=== PATIENT | female | born 1990 | race Caucasian/White ===

== ENCOUNTER → 2017-12-14 14:00 | Outpatient (CLI) | payer OTHER, SELFPAY | PROVIDERS: Family Provider Family Medicine; PCP Family Medicine | DX: Z23 Encounter for immunization (principal) | CPT/HCPCS: 90471; 90686 ==

== ENCOUNTER → 2018-08-17 08:39 | Outpatient (CLI) | payer OTHER, SELFPAY ==
[2018-08-17 09:09] LABS: Hematocrit 43.8 % (36-46); Hemoglobin 14.7 g/dL (12.0-16.0); Mean Corpuscular HGB Conc 33.6 % (30-36); Mean Corpuscular Hemoglobin 28.9 PG (26-34); Platelet Count 219 X10^3/uL (150-400); Red Blood Cell Count 5.09 X10^6/uL (4.0-5.2); Red Cell Distribution Width 13.4 % (11.6-14.8); White Blood Cell Count 5.5 X10^3/uL (4.5-11.0)
[2018-08-17 09:54] LABS: Alanine Aminotransferase 20 IU/L (9-52); Albumin 4.7 g/dL (3.5-5.0); Albumin Globulin Ratio 1.6 (1.0-2.8); Alkaline Phosphatase 40 U/L (38-126); Aspartate Aminotransferase 38 IU/L (14-36); BUN Creatinine Ratio 18.3 (6-22); Bilirubin Total 0.9 mg/dL (0.2-1.3); Blood Urea Nitrogen 11 mg/dL (7-17); Calcium 9.6 mg/dL (8.4-10.2); Carbon Dioxide 30 mmol/L (22-32); Chloride 100 mmol/L (98-107); Estimated Glomerular Filt Rate > 60.0 mL/min (>60); Glucose 93 mg/dL (70-100); HEMOLYSIS 17 (0-50); Potassium 3.8 mmol/L (3.4-5.1); Sodium 138 mmol/L (137-145); Total Protein 7.7 g/dL (6.3-8.2)
== END ==
PROVIDERS: PCP Nurse Practitioner Family; Visit Provider Nurse Practitioner Family
DX: Z00.00 Encounter for general adult medical examination without abnormal findings (principal)
CPT/HCPCS: 36415; 80053; 85027

== ENCOUNTER → 2018-09-02 07:41 | Outpatient (CLI) | payer OTHER, SELFPAY | PROVIDERS: PCP Nurse Practitioner Family; Visit Provider Nurse Practitioner Family | DX: Z02.0 Encounter for examination for admission to educational institution (principal) | CPT/HCPCS: 36415; 86787 ==

== ENCOUNTER → 2019-01-19 08:37 | Outpatient (CLI) | payer OTHER, SELFPAY | PROVIDERS: PCP Nurse Practitioner Family | DX: Z23 Encounter for immunization (principal) | CPT/HCPCS: 90471; 90686 ==

== ENCOUNTER → 2019-09-18 17:19 | Outpatient (CLI) | payer OTHER, SELFPAY ==
[2019-09-18 19:00] LABS: BUN Creatinine Ratio 24.6 (6-22); Blood Urea Nitrogen 14 mg/dL (7-17); Calcium 9.8 mg/dL (8.4-10.2); Carbon Dioxide 25 mmol/L (22-32); Chloride 103 mmol/L (98-107); Estimated Glomerular Filt Rate > 60.0 mL/min (>60); Glucose 76 mg/dL (70-100); HEMOLYSIS < 15 (0-50); Potassium 3.9 mmol/L (3.4-5.1); Sodium 137 mmol/L (137-145)
[2019-09-20 15:08] LABS: QuantiFERON Mitogen Value 5.55 IU/mL (.); QuantiFERON Nil Value 0.17 IU/mL (.); QuantiFERON TB Gold Plus Negative (Negative); QuantiFERON TB1 Ag Value 0.22 IU/mL (.); QuantiFERON TB2 Ag Value 0.17 IU/mL (.)
== END ==
PROVIDERS: PCP Nurse Practitioner Family; Referring Provider Nurse Practitioner Family; Visit Provider Nurse Practitioner Family
DX: Z00.00 Encounter for general adult medical examination without abnormal findings (principal); Z11.1 Encounter for screening for respiratory tuberculosis
CPT/HCPCS: 36415; 80048; 86480

== ENCOUNTER → 2019-12-19 | Outpatient (CLI) | payer OTHER, SELFPAY | PROVIDERS: PCP Nurse Practitioner Family; Referring Provider Internal Medicine; Visit Provider Internal Medicine | DX: Z23 Encounter for immunization (principal) | CPT/HCPCS: 90471; 90686 ==

== ENCOUNTER → 2020-03-22 15:48 | Outpatient (CLI) | payer OTHER, SELFPAY ==
[2020-03-22] MEDS: COVID-19 VACC(MODERNA-1)/PF 100 MCG/0.5 ML VIAL IM (16:06)
== END ==
PROVIDERS: Visit Provider Internal Medicine
DX: Z23 Encounter for immunization (principal)
CPT/HCPCS: 0011A; 91301

== ENCOUNTER → 2020-04-18 15:45 | Outpatient (CLI) | payer OTHER, SELFPAY ==
[2020-04-18] MEDS: COVID-19 VACC #2, MRNA(MOD) 100 MCG/0.5 ML VIAL IM (15:50)
== END ==
PROVIDERS: Visit Provider Internal Medicine
DX: Z23 Encounter for immunization (principal)
CPT/HCPCS: 0012A; 91301

== ENCOUNTER → 2020-07-04 10:57 | Outpatient (CLI) | payer OTHER, SELFPAY ==
[2020-07-04 11:27] LABS: Hematocrit 39.8 % (36-46); Hemoglobin 13.4 g/dL (12.0-16.0); Mean Corpuscular HGB Conc 33.5 % (30-36); Mean Corpuscular Hemoglobin 28.9 PG (26-34); Mean Corpuscular Volume 86.1 fL (80-100); Platelet Count 195 X10^3/uL (150-400); Red Blood Cell Count 4.63 X10^6/uL (4.0-5.2); Red Cell Distribution Width 13.8 % (11.6-14.8); White Blood Cell Count 7.6 X10^3/uL (4.5-11.0)
[2020-07-04 12:16] LABS: Alanine Aminotransferase 16 IU/L (<35); Albumin 4.5 g/dL (3.5-5.0); Albumin Globulin Ratio 1.9 (1.0-2.8); Alkaline Phosphatase 48 U/L (38-126); Aspartate Aminotransferase 26 IU/L (14-36); BUN Creatinine Ratio 18.2 (6-22); Bilirubin Total 0.7 mg/dL (0.2-1.3); Blood Urea Nitrogen 10 mg/dL (7-17); Calcium 9.5 mg/dL (8.4-10.2); Carbon Dioxide 28 mmol/L (22-32); Chloride 102 mmol/L (98-107); Cholesterol 125 mg/dL (140-199); Estimated Glomerular Filt Rate > 60.0 mL/min (>60); Globulin 2.4 g/dL (1.7-4.1); Glucose 87 mg/dL (70-100); HDL Cholesterol 47 mg/dL (40-60); HEMOLYSIS < 15 (0-50); LDL Cholesterol Calculated 68 mg/dL (<100); Potassium 3.9 mmol/L (3.4-5.1); Sodium 137 mmol/L (137-145); Total Protein 6.9 g/dL (6.3-8.2); Triglycerides 51 mg/dL (35-150)
== END ==
PROVIDERS: PCP Nurse Practitioner Family; Referring Provider Nurse Practitioner Family; Visit Provider Nurse Practitioner Family
DX: Z00.00 Encounter for general adult medical examination without abnormal findings (principal); Z13.6 Encounter for screening for cardiovascular disorders
CPT/HCPCS: 36415; 80053; 80061; 85027

== ENCOUNTER → 2021-01-02 | Outpatient (CLI) | payer SELFPAY | PROVIDERS: PCP Nurse Practitioner Family; Referring Provider Internal Medicine; Visit Provider Internal Medicine | DX: Z23 Encounter for immunization (principal) | CPT/HCPCS: 90471; 90686 ==

== ENCOUNTER → 2022-01-30 08:06 | Outpatient (CLI) | payer BC, SELFPAY | PROVIDERS: PCP Nurse Practitioner Family; Referring Provider Internal Medicine; Visit Provider Internal Medicine | DX: Z23 Encounter for immunization (principal) | CPT/HCPCS: 90471; 90686 ==

== ENCOUNTER → 2022-06-02 16:20 | Outpatient (CLI) | payer BC, SELFPAY ==
[2022-06-02 19:09] LABS: Urine N gonorrhoeae NOT DETECTED
[2022-06-02 19:12] LABS: Urine Chlamydia NOT DETECTED
[2022-06-04 16:29] LABS: HIV 1 & 2 Ab/Ag 4th Gen Combo NEGATIVE (NEGATIVE); Hep C Virus Ab w/Reflex Quant NEGATIVE s/c (NEGATIVE); Hepatitis B Surface Antigen NEGATIVE s/c (NEGATIVE)
[2022-06-05 12:21] LABS: HSV 2 IGG AB < 0.91 index (0.00-0.90); RPR Screen Non Reactive (Non Reactive)
== END ==
PROVIDERS: PCP Nurse Practitioner Family; Referring Provider Nurse Practitioner Family; Visit Provider Nurse Practitioner Family
DX: N89.8 Other specified noninflammatory disorders of vagina (principal); Z20.2 Contact with and (suspected) exposure to infections with a predominantly sexual mode of transmission
CPT/HCPCS: 36415; 86592; 86695; 86696; 86803; 87210; 87340; 87389; 87491; 87591

== ENCOUNTER → 2023-01-27 02:20 | Outpatient (CLI) | payer BC, SELFPAY | PROVIDERS: PCP Nurse Practitioner Family; Referring Provider Family Medicine; Visit Provider Family Medicine | DX: Z23 Encounter for immunization (principal) | CPT/HCPCS: 90471; 90686 ==

== ENCOUNTER → 2023-05-26 10:46 | Outpatient (CLI) | payer OTHER, SELFPAY ==
--- NOTE | 2023-05-26 10:47 | DI.RAD.S_ITS ---
PROCEDURE: XR LUMBAR SPINE 2-3V INDICATIONS: back pain TECHNIQUE: 3 views of the lumbar spine were acquired. COMPARISON: None. FINDINGS: Bones: 5 [id number] vertebrae are present. There is normal bony alignment. No vertebral body compression fractures. No suspicious bony lesions. Mild to moderate disc height loss at L4-5 and L5-S1. Soft tissues: Overlying bowel gas pattern is normal. No suspicious soft tissue calcifications. IUD projects over the pelvis. IMPRESSION: Mild to moderate lower lumbar degenerative disc disease. Dictated by: Braxton Patel M.D. on 05/26/2023 at 11:59 Approved by: Braxton Patel M.D. on 05/26/2023 at 12:00
== END ==
PROVIDERS: PCP Nurse Practitioner Family; Referring Provider Nurse Practitioner Family; Visit Provider Nurse Practitioner Family
DX: M51.16 Intervertebral disc disorders with radiculopathy, lumbar region (principal)
CPT/HCPCS: 72100

== ENCOUNTER 2023-06-24 11:07 | Emergency (ER) | payer OTHER, SELFPAY ==
[2023-06-24 11:17] VITALS: BP 136/93; PULSE 91; RESP 12; TEMP 36.2; O2SAT 100; BMI 24.9
--- NOTE | 2023-06-24 13:08 | ED_ITS ---
HPI - Extremity Problem General Chief complaint: Extremity Problem,Nontraumatic Stated complaint: rt leg numbness tingling weakness Time Seen by Provider: 06/24/23 13:08 Source: patient Mode of arrival: Ambulatory History of Present Illness HPI Narrative: 32-year-old female with history of low back pain approximately a month and a half ago from an injury patient states that was more in the left side, this Wednesday she started having more pain in the right buttock with numbness and tingling radiating down her leg towards her toes and noticed little bit of difficulty lifting her right toes. She denies any other weakness in her leg. N o saddle anesthesia. No loss of bowel or bladder control. She states pain before was more localized to the left side. She does not recall any new injuries recently. She states she does work out regularly. She did have a course of steroids which was helpful, she has been taking naproxen last night took a muscle relaxer which was not very helpful last night. Patient denies fevers or chills. No midline back tenderness. She denies any chest pain or shortness of breath, no other GI or urinary symptoms. She states no daily prescription medications. No prior back surgeries or interventions. No tobacco, occasional alcohol, no recreational drugs. She does have a primary care provider to follow with. Related Data Home Medications Medication Instructions Recorded Confirmed levonorgestrel 21 mcg/24 hours (8 52 mg INTRAU ##0 04/07/05/21/23 yrs) 52 mg intrauterine device (Mirena) doxylamine succinate 25 mg tablet 25 mg PO BEDTIME PRN 07/04/20 05/21/23 Previous Rx's Medication Instructions Recorded acyclovir 800 mg tablet See Rx Instructions .Route 02/13/22 .COMPLEX #90 tabs cyclobenzaprine 10 mg tablet 5 - 10 mg (0.5 - 1 x 10 mg) PO TID 05/18/23 #30 tabs naproxen 500 mg tablet 500 mg PO BID #60 tabs 05/18/23 gabapentin 300 mg capsule 300 mg PO TID #30 caps 06/24/23 meloxicam 7.5 mg tablet 7.5 mg PO BID PRN pain #14 tabs 06/24/23 prednisone 10 mg tablets in a dose See Rx Instructions PO .COMPLEX 06/24/23 pack #18 ea Allergies Allergy/AdvReac Type Severity Reaction Status Date / Time No Known Drug Allergies Allergy Verified 05/21/23 16:01 Review of Systems Review of Systems ROS Unobtainable: All systems reviewed & are unremarkable except as noted in HPI and below Patient History Medical History Lumbar radiculopathy IUD (intrauterine device) in place Encounter for wellness examination in adult Insomnia Anxiety Family History Father Obese Diabetes mellitus Hypertension Mother Hypertension Social History Smoking Status: Never smoker second hand exposure: No alcohol intake: current (3 Beers on the weekends) substance use type: does not use Smoking Status: Never smoker alcohol intake frequency: 0-2 drinks per day Substance Use Type: does not use Exam Narrative Exam Narrative: GENERAL: Alert and oriented x three, female in mild distress. HEENT: Head normocephalic, atraumatic, EOMI, pupils reactive, face symmetric, moist mucous membranes NECK: Supple, full range of motion CARDIOVASCULAR: Regular rate and rhythm without murmurs, rubs or gallops. RESPIRATORY: Breath sounds equal bilaterally, no wheezes rales or rhonchi. ABDOMEN: Soft, nontender. Normoactive bowel sounds all 4 quadrants. No guarding or rebound, rigidity, no mass : No CVA tenderness BACK: No cervical, thoracic or lumbar vertebral point tenderness. Patient has normal range of motion. Patient's gait is normal. Rectal exam is deferred. No saddle anesthesia. Muscle strength is 5/5 in lower extremities, very mild difference in right dorsiflexion compared to left but is able to overcome my resistance. DTRs are 2/4 lower extremities. Dorsalis pedis and tibialis pulses are 2+ and lower extremities. Sensation is intact in the lower extremities. EXTREMITIES: Normal range of motion, no clubbing or edema. Neurovascularly intact NEUROLOGICAL: Cranial nerves II through XII grossly intact. Moving all extremities SKIN: Warm, dry, no petechiae, no rashes or lesions. Initial Vital Signs Initial Vital Signs: Vital Signs Temperature 97.2 F L 06/24/23 11:17 Pulse Rate 91 H 06/24/23 11:17 Respiratory Rate 12 06/24/23 11:17 Blood Pressure 136/93 H 06/24/23 11:17 Pulse Oximetry 100 06/24/23 11:17 Oxygen Delivery Method Room Air 06/24/23 11:17 Course Vital Signs Vital signs: Vital Signs - 8 hr 06/24/23 11:17 06/24/23 13:40 Temperature 97.2 F L Pulse Rate 91 H 71 Respiratory Rate 12 14 Blood Pressure 136/93 H 123/81 Pulse Oximetry 100 98 Oxygen Delivery Method Room Air Room Air MDM - Extremity (Nontraumatic) MDM Narrative Medical decision making narrative: 32-year-old female with a history of low back injury and pain more in the left proximally a month and a half ago with new right buttock pain numbness and tingling but no midline pain. Patient's exam overall reassuring she has a very mild weakness with dorsiflexion of the toes but is able to overcome on examination, otherwise no red flag symptoms. Patient has been ambulating in the room. She defers anything for pain here. Patient has not had any trauma or changes that would warrant MR L-spine or CT imaging at this point. Discussed need for follow-up particularly if symptoms are not improving. Short course of steroids, gabapentin can continue naproxen for pain. Discussed follow up with spinal or PMR if symptoms are persistent but mild. Discussed red flag symptoms and reasons to return emergently. Discharge Plan Departure Patient Disposition: Home Clinical Impression: Lumbar back pain with radiculopathy affecting right lower extremity Instructions: DI for Lumbar Radiculopathy Activity Restrictions/Additional Instructions: Follow up with primary care your symptoms are persisting. Also included referral to orthopedic surgery/spinal surgeon. Please call to set up follow-up. Take steroids until completed. You can take Tylenol up to a 1000 mg every 6 hours and/or ibuprofen up to 600 mg every 6 hours. Can also take meloxicam 1 tablet every 12 hours as needed for pain. Do not take Aleve, naproxen or ibuprofen or other NSAIDs with this medica tion. Take gabapentin 1 tablet every 8 hours. Prescription sent to [place] in [place]. Please return for rapidly worsening symptoms, new or increasing weakness, loss of sensation, inability to lift or move your leg, loss of bowel or bladder control or other new or concerning changes. Prescriptions: New prednisone 10 mg tablets,dose pack See Rx Instructions .ROUTE .COMPLEX Qty: 18 0RF Rx Instructions: Take 40 mg once daily x3 days, then 30 mg once daily, then 20 mg once daily, then 10 mg once meloxicam 7.5 mg tablet 7.5 mg PO BID PRN (Reason: pain) Qty: 14 0RF gabapentin 300 mg capsule 300 mg PO TID Qty: 30 0RF No Action levonorgestrel [Mirena] 1 EACH intrauterine device 52 mg INTRAU Qty: 0 acyclovir 800 mg tablet See Rx Instructions .ROUTE .COMPLEX Qty: 90 2RF Dose Instruction: TAKE 1 TABLET BY MOUTH 5 TIMES A DAY NEEDED FOR OUTBREAK Rx Instructions: TAKE 1 TABLET BY MOUTH 5 TIMES A DAY NEEDED FOR OUTBREAK cyclobenzaprine 10 mg tablet 5 - 10 mg PO TID Qty: 30 2RF naproxen 500 mg tablet 500 mg PO BID Qty: 60 0RF doxylamine succinate 25 mg tablet 25 mg PO BEDTIME PRN Referrals: Ayesha Kelly, [employer] [Primary Care Provider] - Stand Alone Forms: Patient Portal/API
[2023-06-24 13:40] VITALS: BP 123/81; PULSE 71; RESP 14; O2SAT 98
== END 2023-06-24 13:42 | disposition home or self-care (01) ==
PROVIDERS: Emergency Provider Emergency Medicine; PCP Nurse Practitioner Family
DX: M54.16 Radiculopathy, lumbar region (principal)
CPT/HCPCS: 99281

== ENCOUNTER 2023-07-08 15:15 | Outpatient (RCR) | payer OTHER, SELFPAY ==
--- NOTE | 2023-06-17 16:00 | PT.OIE ---
Current Diagnoses Radiculopathy, lumbar region (06/17/23) Other muscle spasm (06/17/23) Past Medical History Anxiety Encounter for wellness examination in adult Insomnia IUD (intrauterine device) in place Visit Care Team Role [facility] Provider Advanced Property Coordinator Specialty: Family Practice Address: [address] [place] [address], [id number] Phone: Fax: Email: [email or web address] Rachel Garcia PA-C Attending Provider Advanced Property Coordinator Referring Provider Specialty: Medical Wound Care Address: [address] [place] [address], [id number] Email: [email or web address] Physical Therapy Initial Evaluation PT-OP-A Visit Information Start: 06/17/23 17:39 Freq: Status: Active Protocol: Document 06/17/23 15:15 DCW (Rec: 06/17/23 17:53 DCW [id number]) Out-Patient Physical Therapy Visit Information Visit Information Visit Type Initial Evaluation Visit Start Time 15:15 Visit Stop Time 16:00 Visit Number 1 Number of WAREHOUSE ASSEMBLY WORKER Visits 0 Evaluation Information Evaluation Date 06/17/23 PT-OP-B Current Condition Start: 06/17/23 17:39 Freq: Status: Active Protocol: Document 06/17/23 15:15 DCW (Rec: 06/18/23 13:30 DCW [id number]) Current Condition History of Current Condition Onset Date Long-standing history Current Complaints Back and left hip pain History of Current Condition Pt is a 32 year old female presenting to skilled therapy complaining of a recent flare- up of an old injury. Pt reports that she initially injured her back multiple years ago, she believes it began after playing softball, was seen at the time by a chiropractor, but afterward couldn't walk, and took an extended time for everything to largely get back to normal. Recently, she was feeling pretty stiff through her back on a Wednesday at work, played softball on Wednesday, and was in fairly severe pain Wednesday. Pt reports she was experiencing shooting pain across her low back, had to spend quite a while lying flat to calm things down, pain eventually faded and she was able to get back to running and the gym, but is limiting what she does due to lingering pain and stiffness. Pt does note that at this time, it feels more muscular, specifically tightness in the hip flexors and the back of her left hip. Treatment Goals Patient/Caregiver Goals Fully return to participation in gym activities PT-OP-C Subjective Start: 06/17/23 17:39 Freq: Status: Active Protocol: Document 06/17/23 15:15 DCW (Rec: 06/17/23 17:53 DCW [id number]) OP-PT Subjective Patient Comments Patient Comments It's been bothering me for a few months now, but it's actually an old injury. Patient Questionnaires Oswestry Low Back Index Oswestry Score 9/50 = 18% Oswestry Impairment 1 to 19% Impaired (Score 1-19) OP-PT Pain Assessment Pain Assessment Grid Paper Pain Assessment Grid Completed Yes Location Lower Back Variations/Patterns 3-09/21 PT-OP-F Manual Assessment Start: 06/17/23 17:39 Freq: Status: Active Protocol: Document 06/17/23 15:15 DCW (Rec: 06/18/23 13:30 DCW [id number]) Manual Assessments Soft Tissue Assessment Soft Tissue Mobility Assessment Moderate tone along left T/L erector spinae, left hip flexors, L>R ITB, L>R Piriformis Joint Mobility Assessment Joint Mobility Assessment Mild pain with P->A mobs at L3 -4 PT-OP-G Mobility & Gait Start: 06/17/23 17:39 Freq: Status: Active Protocol: Document 06/17/23 15:15 DCW (Rec: 06/18/23 13:30 DCW [id number]) OP Gait Assessment Comments Gait Comments Mild eversion/supination of feet bilaterally during gait, wear pattern along outside of shoe PT-OP-J Posture/Palpation/Skin Start: 06/17/23 17:39 Freq: Status: Active Protocol: Document 06/17/23 15:15 DCW (Rec: 06/18/23 13:30 DCW [id number]) Posture Evaluation Position Standing Ankle/Foot Posture (L) Pronated,(R) Pronated Foot Arch (L) Low Arch,(R) Low Arch PT-OP-L Special Tests Start: 06/17/23 17:39 Freq: Status: Active Protocol: Document 06/17/23 15:15 DCW (Rec: 06/18/23 13:30 DCW [id number]) Special Tests Lumbar Spine Special Tests Vertical Spine Loading Test Results Negative Miguel Ángel Test Results Bilaterally positive with J sign Straight Leg Raise Test Results Bilateral hamstring tightness Standing Flexion Test Results Complaint of lumbar tightness Slump Test Results Negative Prone Press Up Test Results Increased discomfort Passive Neck Flexion Test Results Negative Compression Test Results Negative A-P Shearing Test Results Negative PT-OP-Q Treatments Start: 06/17/23 17:39 Freq: Status: Active Protocol: Document 06/17/23 15:15 DCW (Rec: 06/17/23 17:53 DCW [id number]) Therapeutic Exercises Supine Exercises ITB Supine Exercise Name ITB stretch Hamstring Supine Exercise Name Hamstring Stretch Sitting Exercises Piriformis Sitting Exercise Name Seated figure-4 Side right PT-OP-T Assessment and Plan Start: 06/17/23 17:39 Freq: Status: Active Protocol: Document 06/17/23 15:15 DCW (Rec: 06/17/23 17:53 [facility] [id number]) Physical Therapy Assessment Rehab Potential Rehabilitation Potential Good Evaluation Complexity Number of Personal Factors/Comorbidities 1-2 Number of Body Systems Impaired 1-2 Clinical Presentation at Evaluation Stable Impairments Impairments Functional Activities, Functional Mobility,Gait,Pain, ROM,Soft Tissue Mobility,Tone Goals Two Impairment Pt has been limiting workouts due on ongoing history of back pain Fdc Goal (LTG) Pt to fully return to pre- injury workout with no instances of pain or limitations due to back tightness LTG Duration 08/17/23 One Impairment Pt does not have an appropriate home exercise program Short Term Goal (STG) Pt to be independent and compliant with an appropriate HEP STG Duration 07/17/23 Assessment Summary Assessment Pt presents with general musculoskeletal tightness and increased tone. Unable to replicate any back pain in clinic today, but pt does demonstrate moderate tone L>R along thoracolumbar erector spinae, hip flexors, hamstrings, QL, and ITB. Lumbar ROM is limited due to feelings of tightness. Wear pattern on pt's shoes does suggest pt ambulates with increased eversion/supination, however when standing without shoes, pt demonstrates mild pronation. Recommend follow-up gait assessment with newer pain of shoes, as well as observation of running and assessment of running shoes, pt agrees to bring with her next visit. Pt overall doing well with stretching at home, but admits she is not as compliant with frequency or duration as she could be. Will likely benefit from skilled therapy focusing on improving flexibility and soft tissue tone, potential gait training, and assess for orthotic possibilities. Physical Therapy Plan Frequency and Duration Frequency of Treatment 2x/Week Plan of Care Start Date 06/17/23 Plan of Care End Date 08/17/23 Therapeutic Interventions Therapeutic Interventions Gait Training,Home Exercise Program,Joint Mobilizations, Manual Therapy,Neuromuscular Re-education,Patient/Caregiver Education,Self-Care/Home Management,Soft Tissue Mobilization,Therapeutic Activities,Therapeutic Exercises Next Visit Focus/Plan Next Note Type Treatment Note Next Visit Plan Running assessment, shoe assessment, STM, stretching
--- NOTE | 2023-06-17 16:00 | PT.OPPOC ---
Physical, Occupational & Speech Therapy At [facility] Current Diagnoses Radiculopathy, lumbar region (06/17/23) Other muscle spasm (06/17/23) Visit Care Team Role Provider Type ZEB Mendoza Primary Care Provider Advanced Gyroscopic Instrument Tester Specialty: Family Practice Address: [address] [place] [address], [id number] Phone: Fax: Email: [email or web address] Rachel Garcia PA-C Attending Provider Advanced Gyroscopic Instrument Tester Referring Provider Specialty: Medical Wound Care Address: [address] [place] [address], [id number] Email: [email or web address] Plan Of Care PT-OP-T Assessment and Plan Start: 06/17/23 17:39 Freq: Status: Active Protocol: Document 06/17/23 15:15 DCW (Rec: 06/17/23 17:53 DCW [id number]) Physical Therapy Assessment Rehab Potential Rehabilitation Potential Good Evaluation Complexity Number of Personal Factors/Comorbidities 1-2 Number of Body Systems Impaired 1-2 Clinical Presentation at Evaluation Stable Impairments Impairments Functional Activities, Functional Mobility,Gait,Pain, ROM,Soft Tissue Mobility,Tone Goals Two Impairment Pt has been limiting workouts due on ongoing history of back pain Custodial Goal (LTG) Pt to fully return to pre- injury workout with no instances of pain or limitations due to back tightness LTG Duration 08/17/23 One Impairment Pt does not have an appropriate home exercise program Short Term Goal (STG) Pt to be independent and compliant with an appropriate HEP STG Duration 07/17/23 Assessment Summary Assessment Pt presents with general musculoskeletal tightness and increased tone. Unable to replicate any back pain in clinic today, but pt does demonstrate moderate tone L>R along thoracolumbar erector spinae, hip flexors, hamstrings, QL, and ITB. Lumbar ROM is limited due to feelings of tightness. Wear pattern on pt's shoes does suggest pt ambulates with increased eversion/supination, however when standing without shoes, pt demonstrates mild pronation. Recommend follow-up gait assessment with newer pain of shoes, as well as observation of running and assessment of running shoes, pt agrees to bring with her next visit. Pt overall doing well with stretching at home, but admits she is not as compliant with frequency or duration as she could be. Will likely benefit from skilled therapy focusing on improving flexibility and soft tissue tone, potential gait training, and assess for orthotic possibilities. Physical Therapy Plan Frequency and Duration Frequency of Treatment 2x/Week Plan of Care Start Date 06/17/23 Plan of Care End Date 08/17/23 Therapeutic Interventions Therapeutic Interventions Gait Training,Home Exercise Program,Joint Mobilizations, Manual Therapy,Neuromuscular Re-education,Patient/Caregiver Education,Self-Care/Home Management,Soft Tissue Mobilization,Therapeutic Activities,Therapeutic Exercises Next Visit Focus/Plan Next Note Type Treatment Note Next Visit Plan Running assessment, shoe assessment, STM, stretching Plan of Care Dates Plan of Care Start Date 06/17/23 Plan of Care End Date 08/17/23 Electronically Signed by: Fuad Crook, PT 06/18/23 [id number] If you are in agreement with this Plan of Care, please return a signed and dated copy. I have reviewed this Plan of Care and certify that the skilled therapy services above are required to meet the patient?s needs. Physician Signature Date Printed Name and Credentials Clinical Instructor Signature Printed Name and Credentials
--- NOTE | 2023-06-21 17:40 | PT.OTN ---
Current Diagnoses Radiculopathy, lumbar region (06/21/23) Other muscle spasm (06/21/23) Physical Therapy Treatment Note PT-OP-A Visit Information Start: 06/17/23 17:39 Freq: Status: Active Protocol: Document 06/21/23 16:00 DCW (Rec: 06/21/23 17:40 DCW [id number]) Out-Patient Physical Therapy Visit Information Visit Information Visit Type Treatment Note Visit Start Time 16:00 Visit Stop Time 16:45 Visit Number 2 Number of BUCKLE SEWER Visits 0 Evaluation Information Evaluation Date 06/17/23 PT-OP-B Current Condition Start: 06/17/23 17:39 Freq: Status: Active Protocol: Document 06/17/23 15:15 DCW (Rec: 06/18/23 13:30 DCW [id number]) Current Condition History of Current Condition Onset Date Long-standing history Current Complaints Back and left hip pain History of Current Condition Pt is a 32 year old female presenting to skilled therapy complaining of a recent flare- up of an old injury. Pt reports that she initially injured her back multiple years ago, she believes it began after playing softball, was seen at the time by a chiropractor, but afterward couldn't walk, and took an extended time for everything to largely get back to normal. Recently, she was feeling pretty stiff through her back on a Wednesday at work, played softball on Wednesday, and was in fairly severe pain Wednesday. Pt reports she was experiencing shooting pain across her low back, had to spend quite a while lying flat to calm things down, pain eventually faded and she was able to get back to running and the gym, but is limiting what she does due to lingering pain and stiffness. Pt does note that at this time, it feels more muscular, specifically tightness in the hip flexors and the back of her left hip. Treatment Goals Patient/Caregiver Goals Fully return to participation in gym activities PT-OP-C Subjective Start: 06/17/23 17:39 Freq: Status: Active Protocol: Document 06/21/23 16:00 DCW (Rec: 06/21/23 17:38 DCW [id number]) OP-PT Subjective Patient Comments Patient Comments Very sore after a workout and softball practice this weekend PT-OP-F Manual Assessment Start: 06/17/23 17:39 Freq: Status: Active Protocol: Document 06/17/23 15:15 DCW (Rec: 06/18/23 13:30 DCW [id number]) Manual Assessments Soft Tissue Assessment Soft Tissue Mobility Assessment Moderate tone along left T/L erector spinae, left hip flexors, L>R ITB, L>R Piriformis Joint Mobility Assessment Joint Mobility Assessment Mild pain with P->A mobs at L3 -4 PT-OP-G Mobility & Gait Start: 06/17/23 17:39 Freq: Status: Active Protocol: Document 06/17/23 15:15 DCW (Rec: 06/18/23 13:30 DCW [id number]) OP Gait Assessment Comments Gait Comments Mild eversion/supination of feet bilaterally during gait, wear pattern along outside of shoe PT-OP-J Posture/Palpation/Skin Start: 06/17/23 17:39 Freq: Status: Active Protocol: Document 06/17/23 15:15 DCW (Rec: 06/18/23 13:30 DCW [id number]) Posture Evaluation Position Standing Ankle/Foot Posture (L) Pronated,(R) Pronated Foot Arch (L) Low Arch,(R) Low Arch PT-OP-L Special Tests Start: 06/17/23 17:39 Freq: Status: Active Protocol: Document 06/17/23 15:15 DCW (Rec: 06/18/23 13:30 DCW [id number]) Special Tests Lumbar Spine Special Tests Vertical Spine Loading Test Results Negative Miguel Ángel Test Results Bilaterally positive with J sign Straight Leg Raise Test Results Bilateral hamstring tightness Standing Flexion Test Results Complaint of lumbar tightness Slump Test Results Negative Prone Press Up Test Results Increased discomfort Passive Neck Flexion Test Results Negative Compression Test Results Negative A-P Shearing Test Results Negative PT-OP-Q Treatments Start: 06/17/23 17:39 Freq: Status: Active Protocol: Document 06/21/23 16:00 DCW (Rec: 06/21/23 17:38 DCW [id number]) Gym Equipment Therapeutic Ball LTR Exercise Details LTR Ball Size/Color Red - 55 cm Therapeutic Exercises Sitting Exercises Ankle Flexion Sitting Exercise Name 4-way ankle flexion Side bilateral Resistance Lv 4 Standing Exercises Heel Raises Standing Exercise Name SL Heel raises Side bilateral Manual Therapy Treatment Soft Tissue Mobilization Piriformis Body Location L Piriformis Mobilization Type Strumming,Sustained Pressure, Trigger Point Release Intensity/Depth Deep Body Position Sidelying Hip Flexors Body Location L Hip Flexors Mobilization Type Strumming,Sustained Pressure Intensity/Depth Moderate Body Position Hooklying Lumbar Body Location L Lumbar paraspinals Mobilization Type Strumming,Sustained Pressure, Trigger Point Release Intensity/Depth Moderate Body Position Sidelying Manual Traction LE Traction Details Short-axis /c strap PT-OP-T Assessment and Plan Start: 06/17/23 17:39 Freq: Status: Active Protocol: Document 06/21/23 16:00 DCW (Rec: 06/21/23 17:38 DCW [id number]) Physical Therapy Assessment Impairments Impairments Functional Activities, Functional Mobility,Gait,Pain, ROM,Soft Tissue Mobility,Tone Goals Two Impairment Pt has been limiting workouts due on ongoing history of back pain Dance Professor Goal (LTG) Pt to fully return to pre- injury workout with no instances of pain or limitations due to back tightness LTG Duration 08/17/23 One Impairment Pt does not have an appropriate home exercise program Short Term Goal (STG) Pt to be independent and compliant with an appropriate HEP STG Duration 07/17/23 Assessment Summary Assessment Looked at running shoes and running technique today, no concerns, however when pt switched from jogging to walking, immediately repositioned feet into a more pronated position. Pt also struggled more with SL heel raises, especially on L side, where she performed small knee flexion->extension to use momentum into up position. Recommended pt add ankle strengthening. Soft tissue tone increased vs last week following active weekend, L paraspinals and piriformis much more tender today. Physical Therapy Plan Frequency and Duration Frequency of Treatment 2x/Week Plan of Care Start Date 06/17/23 Plan of Care End Date 08/17/23 Therapeutic Interventions Therapeutic Interventions Gait Training,Home Exercise Program,Joint Mobilizations, Manual Therapy,Neuromuscular Re-education,Patient/Caregiver Education,Self-Care/Home Management,Soft Tissue Mobilization,Therapeutic Activities,Therapeutic Exercises Next Visit Focus/Plan Next Note Type Treatment Note Next Visit Plan STM, stretching, strengthening
--- NOTE | 2023-06-23 17:04 | PT.OTN ---
Current Diagnoses Radiculopathy, lumbar region (06/23/23) Other muscle spasm (06/23/23) Physical Therapy Treatment Note PT-OP-A Visit Information Start: 06/17/23 17:39 Freq: Status: Active Protocol: Document 06/23/23 16:02 DCW (Rec: 06/23/23 17:04 DCW [id number]) Out-Patient Physical Therapy Visit Information Visit Information Visit Type Treatment Note Visit Start Time 16:02 Visit Stop Time 16:45 Visit Number 3 Number of SAND WORKER Visits 0 Evaluation Information Evaluation Date 06/17/23 PT-OP-B Current Condition Start: 06/17/23 17:39 Freq: Status: Active Protocol: Document 06/17/23 15:15 DCW (Rec: 06/18/23 13:30 DCW [id number]) Current Condition History of Current Condition Onset Date Long-standing history Current Complaints Back and left hip pain History of Current Condition Pt is a 32 year old female presenting to skilled therapy complaining of a recent flare- up of an old injury. Pt reports that she initially injured her back multiple years ago, she believes it began after playing softball, was seen at the time by a chiropractor, but afterward couldn't walk, and took an extended time for everything to largely get back to normal. Recently, she was feeling pretty stiff through her back on a Wednesday at work, played softball on Wednesday, and was in fairly severe pain Wednesday. Pt reports she was experiencing shooting pain across her low back, had to spend quite a while lying flat to calm things down, pain eventually faded and she was able to get back to running and the gym, but is limiting what she does due to lingering pain and stiffness. Pt does note that at this time, it feels more muscular, specifically tightness in the hip flexors and the back of her left hip. Treatment Goals Patient/Caregiver Goals Fully return to participation in gym activities PT-OP-C Subjective Start: 06/17/23 17:39 Freq: Status: Active Protocol: Document 06/23/23 16:02 DCW (Rec: 06/23/23 17:04 DCW [id number]) OP-PT Subjective Patient Comments Patient Comments Pt comes in today with increased spasm and tingling on right side, starting suddenly yesterday. PT-OP-F Manual Assessment Start: 06/17/23 17:39 Freq: Status: Active Protocol: Document 06/17/23 15:15 DCW (Rec: 06/18/23 13:30 DCW [id number]) Manual Assessments Soft Tissue Assessment Soft Tissue Mobility Assessment Moderate tone along left T/L erector spinae, left hip flexors, L>R ITB, L>R Piriformis Joint Mobility Assessment Joint Mobility Assessment Mild pain with P->A mobs at L3 -4 PT-OP-G Mobility & Gait Start: 06/17/23 17:39 Freq: Status: Active Protocol: Document 06/17/23 15:15 DCW (Rec: 06/18/23 13:30 DCW [id number]) OP Gait Assessment Comments Gait Comments Mild eversion/supination of feet bilaterally during gait, wear pattern along outside of shoe PT-OP-J Posture/Palpation/Skin Start: 06/17/23 17:39 Freq: Status: Active Protocol: Document 06/17/23 15:15 DCW (Rec: 06/18/23 13:30 DCW [id number]) Posture Evaluation Position Standing Ankle/Foot Posture (L) Pronated,(R) Pronated Foot Arch (L) Low Arch,(R) Low Arch PT-OP-L Special Tests Start: 06/17/23 17:39 Freq: Status: Active Protocol: Document 06/17/23 15:15 DCW (Rec: 06/18/23 13:30 DCW [id number]) Special Tests Lumbar Spine Special Tests Vertical Spine Loading Test Results Negative Miguel Ángel Test Results Bilaterally positive with J sign Straight Leg Raise Test Results Bilateral hamstring tightness Standing Flexion Test Results Complaint of lumbar tightness Slump Test Results Negative Prone Press Up Test Results Increased discomfort Passive Neck Flexion Test Results Negative Compression Test Results Negative A-P Shearing Test Results Negative PT-OP-Q Treatments Start: 06/17/23 17:39 Freq: Status: Active Protocol: Document 06/23/23 16:02 DCW (Rec: 06/23/23 17:04 DCW [id number]) Therapeutic Exercises Supine Exercises Psoas Supine Exercise Name R Psoas stretch ITB Supine Exercise Name ITB stretch Hamstring Supine Exercise Name Hamstring Stretch Other Exercises Sliders Other Exercise Name Hip abduction Side bilateral Equipment Used Furniture slider Manual Therapy Treatment Soft Tissue Mobilization Piriformis Body Location L Piriformis Mobilization Type Strumming,Sustained Pressure, Trigger Point Release Intensity/Depth Deep Body Position Sidelying Hip Flexors Body Location L Hip Flexors Mobilization Type Strumming,Sustained Pressure Intensity/Depth Moderate Body Position Hooklying Lumbar Body Location L Lumbar paraspinals Mobilization Type Strumming,Sustained Pressure, Trigger Point Release Intensity/Depth Moderate Body Position Prone Joint Mobilizations Hip Joint R hip /c strap Direction Lateral distraction Grade IV Body Position Hooklying Other Other Manual Treatments Pelvis MWM - resisted R flexion, L extension PT-OP-T Assessment and Plan Start: 06/17/23 17:39 Freq: Status: Active Protocol: Document 06/23/23 16:02 DCW (Rec: 06/23/23 17:04 DCW [id number]) Physical Therapy Assessment Impairments Impairments Functional Activities, Functional Mobility,Gait,Pain, ROM,Soft Tissue Mobility,Tone Goals Two Impairment Pt has been limiting workouts due on ongoing history of back pain Nursing Home Goal (LTG) Pt to fully return to pre- injury workout with no instances of pain or limitations due to back tightness LTG Duration 08/17/23 One Impairment Pt does not have an appropriate home exercise program Short Term Goal (STG) Pt to be independent and compliant with an appropriate HEP STG Duration 07/17/23 Assessment Summary Assessment Concerning for sudden neural changes today, notably right DF weakness, sensory changes in right upper leg, and cramping. Still unable to replicate any symptoms with lumbar testing, and pt continues to present with increased soft tissue tone. Did appear to have fewer symptoms following MWM and hip traction, however recommended that pt contact PCP due to sudden nerve changes. Physical Therapy Plan Frequency and Duration Frequency of Treatment 2x/Week Plan of Care Start Date 06/17/23 Plan of Care End Date 08/17/23 Therapeutic Interventions Therapeutic Interventions Gait Training,Home Exercise Program,Joint Mobilizations, Manual Therapy,Neuromuscular Re-education,Patient/Caregiver Education,Self-Care/Home Management,Soft Tissue Mobilization,Therapeutic Activities,Therapeutic Exercises Next Visit Focus/Plan Next Note Type Treatment Note Next Visit Plan STM, stretching, strengthening
--- NOTE | 2023-06-29 16:09 | PT.OTN ---
Current Diagnoses Radiculopathy, lumbar region (06/29/23) Other muscle spasm (06/29/23) Physical Therapy Treatment Note PT-OP-A Visit Information Start: 06/17/23 17:39 Freq: Status: Active Protocol: Document 06/29/23 15:18 DCW (Rec: 06/29/23 16:08 DCW [id number]) Out-Patient Physical Therapy Visit Information Visit Information Visit Type Treatment Note Visit Start Time 15:18 Visit Stop Time 16:00 Visit Number 4 Number of SUPERVISOR [employer]CR[employer]ISHING Visits 0 Evaluation Information Evaluation Date 06/17/23 PT-OP-B Current Condition Start: 06/17/23 17:39 Freq: Status: Active Protocol: Document 06/17/23 15:15 DCW (Rec: 06/18/23 13:30 DCW [id number]) Current Condition History of Current Condition Onset Date Long-standing history Current Complaints Back and left hip pain History of Current Condition Pt is a 32 year old female presenting to skilled therapy complaining of a recent flare- up of an old injury. Pt reports that she initially injured her back multiple years ago, she believes it began after playing softball, was seen at the time by a chiropractor, but afterward couldn't walk, and took an extended time for everything to largely get back to normal. Recently, she was feeling pretty stiff through her back on a Wednesday at work, played softball on Wednesday, and was in fairly severe pain Wednesday. Pt reports she was experiencing shooting pain across her low back, had to spend quite a while lying flat to calm things down, pain eventually faded and she was able to get back to running and the gym, but is limiting what she does due to lingering pain and stiffness. Pt does note that at this time, it feels more muscular, specifically tightness in the hip flexors and the back of her left hip. Treatment Goals Patient/Caregiver Goals Fully return to participation in gym activities PT-OP-C Subjective Start: 06/17/23 17:39 Freq: Status: Active Protocol: Document 06/29/23 15:18 DCW (Rec: 06/29/23 16:08 DCW [id number]) OP-PT Subjective Patient Comments Patient Comments Pt reports DF weakness worsened after her last visit, was in significant pain the following day, enough that she left work early and ent to the ED. Was given steroids, which seem to have helped a lot with the pain, still achy in anterior hip, still feels some DF weakness PT-OP-F Manual Assessment Start: 06/17/23 17:39 Freq: Status: Active Protocol: Document 06/17/23 15:15 DCW (Rec: 06/18/23 13:30 DCW [id number]) Manual Assessments Soft Tissue Assessment Soft Tissue Mobility Assessment Moderate tone along left T/L erector spinae, left hip flexors, L>R ITB, L>R Piriformis Joint Mobility Assessment Joint Mobility Assessment Mild pain with P->A mobs at L3 -4 PT-OP-G Mobility & Gait Start: 06/17/23 17:39 Freq: Status: Active Protocol: Document 06/17/23 15:15 DCW (Rec: 06/18/23 13:30 DCW [id number]) OP Gait Assessment Comments Gait Comments Mild eversion/supination of feet bilaterally during gait, wear pattern along outside of shoe PT-OP-J Posture/Palpation/Skin Start: 06/17/23 17:39 Freq: Status: Active Protocol: Document 06/17/23 15:15 DCW (Rec: 06/18/23 13:30 DCW [id number]) Posture Evaluation Position Standing Ankle/Foot Posture (L) Pronated,(R) Pronated Foot Arch (L) Low Arch,(R) Low Arch PT-OP-L Special Tests Start: 06/17/23 17:39 Freq: Status: Active Protocol: Document 06/17/23 15:15 DCW (Rec: 06/18/23 13:30 DCW [id number]) Special Tests Lumbar Spine Special Tests Vertical Spine Loading Test Results Negative Miguel Ángel Test Results Bilaterally positive with J sign Straight Leg Raise Test Results Bilateral hamstring tightness Standing Flexion Test Results Complaint of lumbar tightness Slump Test Results Negative Prone Press Up Test Results Increased discomfort Passive Neck Flexion Test Results Negative Compression Test Results Negative A-P Shearing Test Results Negative PT-OP-Q Treatments Start: 06/17/23 17:39 Freq: Status: Active Protocol: Document 06/29/23 15:18 DCW (Rec: 06/29/23 16:08 DCW [id number]) Therapeutic Exercises Supine Exercises One leg press/hold Supine Exercise Name S KtC, then isometric hip extension vs hand resistance One leg pelvic lift Supine Exercise Name Unilateral hooklying, small pelvic lift /c fwd movement of knee Side bilateral Adduction Supine Exercise Name Hip Adductor Ball squeeze Manual Therapy Treatment Soft Tissue Mobilization Piriformis Body Location R Piriformis Mobilization Type Strumming,Sustained Pressure, Trigger Point Release Intensity/Depth Deep Body Position Sidelying Hip Flexors Body Location R Hip Flexors Mobilization Type Strumming,Sustained Pressure Intensity/Depth Moderate Body Position Hooklying Lumbar Body Location R Lumbar paraspinals Mobilization Type Strumming,Sustained Pressure, Trigger Point Release Intensity/Depth Moderate Body Position Prone Other Other Manual Treatments Pelvis MWM - resisted R flexion, L extension PT-OP-T Assessment and Plan Start: 06/17/23 17:39 Freq: Status: Active Protocol: Document 06/29/23 15:18 DCW (Rec: 06/29/23 16:08 DCW [id number]) Physical Therapy Assessment Impairments Impairments Functional Activities, Functional Mobility,Gait,Pain, ROM,Soft Tissue Mobility,Tone Goals Two Impairment Pt has been limiting workouts due on ongoing history of back pain Junior Programmer Goal (LTG) Pt to fully return to pre- injury workout with no instances of pain or limitations due to back tightness LTG Duration 08/17/23 One Impairment Pt does not have an appropriate home exercise program Short Term Goal (STG) Pt to be independent and compliant with an appropriate HEP STG Duration 07/17/23 Assessment Summary Assessment Pt once again coming in with change in symptoms, is doing better today than last week after ED visit, steroids beneficial. Today presenting more like R SI dysfunction, slight pelvic rotation (R elevated) and increased pain with manual pressure on R SI. Provided with self-SI mob HO, included add ball squeeze, one leg pelvic lift, and one leg press/hold. Continues to exhibit right DF weakness. Physical Therapy Plan Frequency and Duration Frequency of Treatment 2x/Week Plan of Care Start Date 06/17/23 Plan of Care End Date 08/17/23 Therapeutic Interventions Therapeutic Interventions Gait Training,Home Exercise Program,Joint Mobilizations, Manual Therapy,Neuromuscular Re-education,Patient/Caregiver Education,Self-Care/Home Management,Soft Tissue Mobilization,Therapeutic Activities,Therapeutic Exercises Next Visit Focus/Plan Next Note Type Treatment Note Next Visit Plan STM, stretching, strengthening
--- NOTE | 2023-07-02 12:13 | PT.OTN ---
Current Diagnoses Radiculopathy, lumbar region (07/02/23) Other muscle spasm (07/02/23) Physical Therapy Treatment Note PT-OP-A Visit Information Start: 06/17/23 17:39 Freq: Status: Active Protocol: Document 07/02/23 11:21 NBM (Rec: 07/02/23 12:13 NBM [id number]) Out-Patient Physical Therapy Visit Information Visit Information Visit Type Treatment Note Visit Start Time 11:21 Visit Stop Time 12:07 Visit Number 5 Number of FLAME DEGREASER Visits 1 Evaluation Information Evaluation Date 06/17/23 PT-OP-B Current Condition Start: 06/17/23 17:39 Freq: Status: Active Protocol: Document 06/17/23 15:15 DCW (Rec: 06/18/23 13:30 DCW [id number]) Current Condition History of Current Condition Onset Date Long-standing history Current Complaints Back and left hip pain History of Current Condition Pt is a 32 year old female presenting to skilled therapy complaining of a recent flare- up of an old injury. Pt reports that she initially injured her back multiple years ago, she believes it began after playing softball, was seen at the time by a chiropractor, but afterward couldn't walk, and took an extended time for everything to largely get back to normal. Recently, she was feeling pretty stiff through her back on a Wednesday at work, played softball on Wednesday, and was in fairly severe pain Wednesday. Pt reports she was experiencing shooting pain across her low back, had to spend quite a while lying flat to calm things down, pain eventually faded and she was able to get back to running and the gym, but is limiting what she does due to lingering pain and stiffness. Pt does note that at this time, it feels more muscular, specifically tightness in the hip flexors and the back of her left hip. Treatment Goals Patient/Caregiver Goals Fully return to participation in gym activities PT-OP-C Subjective Start: 06/17/23 17:39 Freq: Status: Active Protocol: Document 07/02/23 11:21 NBM (Rec: 07/02/23 12:13 NBM [id number]) OP-PT Subjective Patient Comments Patient Comments Pt reports pain slowly got better since last Wed/ and yesterday was first day it was really better. she went to ED adn got steroids which helped. R hip pain 2/10 right now and notices R leg is weaker. PT-OP-F Manual Assessment Start: 06/17/23 17:39 Freq: Status: Active Protocol: Document 06/17/23 15:15 DCW (Rec: 06/18/23 13:30 DCW [id number]) Manual Assessments Soft Tissue Assessment Soft Tissue Mobility Assessment Moderate tone along left T/L erector spinae, left hip flexors, L>R ITB, L>R Piriformis Joint Mobility Assessment Joint Mobility Assessment Mild pain with P->A mobs at L3 -4 PT-OP-G Mobility & Gait Start: 06/17/23 17:39 Freq: Status: Active Protocol: Document 06/17/23 15:15 DCW (Rec: 06/18/23 13:30 DCW [id number]) OP Gait Assessment Comments Gait Comments Mild eversion/supination of feet bilaterally during gait, wear pattern along outside of shoe PT-OP-J Posture/Palpation/Skin Start: 06/17/23 17:39 Freq: Status: Active Protocol: Document 06/17/23 15:15 DCW (Rec: 06/18/23 13:30 DCW [id number]) Posture Evaluation Position Standing Ankle/Foot Posture (L) Pronated,(R) Pronated Foot Arch (L) Low Arch,(R) Low Arch PT-OP-L Special Tests Start: 06/17/23 17:39 Freq: Status: Active Protocol: Document 06/17/23 15:15 DCW (Rec: 06/18/23 13:30 DCW [id number]) Special Tests Lumbar Spine Special Tests Vertical Spine Loading Test Results Negative Miguel Ángel Test Results Bilaterally positive with J sign Straight Leg Raise Test Results Bilateral hamstring tightness Standing Flexion Test Results Complaint of lumbar tightness Slump Test Results Negative Prone Press Up Test Results Increased discomfort Passive Neck Flexion Test Results Negative Compression Test Results Negative A-P Shearing Test Results Negative PT-OP-Q Treatments Start: 06/17/23 17:39 Freq: Status: Active Protocol: Document 07/02/23 11:21 NBM (Rec: 07/02/23 12:13 NBM [id number]) Gym Equipment Therapeutic Ball LTR Exercise Details LTR Ball Size/Color Red - 55 cm Comments cue for TrA engagement Therapeutic Exercises Supine Exercises Piriformis Supine Exercise Name Figure 4 stretch Side bilateral Equipment Used 55cm orange ball Reps/Minutes 30s ea One leg pelvic lift Supine Exercise Name Unilateral hooklying, small pelvic lift /c fwd movement of knee Side bilateral Comments dc'd due to R low back pain Adduction Supine Exercise Name Hip Adductor Ball squeeze Reps/Minutes 10 x 2 breath hold Comments seated Sitting Exercises Ankle Flexion Sitting Exercise Name 4-way ankle flexion Side bilateral Resistance Lv 4 Reps/Minutes x10 ea Comments cues for slower pacing Standing Exercises STS Standing Exercise Name sit to stand Resistance Lvl 4 Tb above knees Reps/Minutes x10, x10 w/ band Comments cues for eccentric control, LE alignment Heel Raises Standing Exercise Name in sitting Side bilateral Reps/Minutes x10, 2#x10 Comments no pain, Other Exercises Sliders Other Exercise Name Hip abduction Side bilateral Equipment Used Furniture slider Self-Care/Home Management Treatment Education Patient Education Pain Management Other Education Pt i/s in self-STM to piriformis w/ tennis ball at wall. PT-OP-T Assessment and Plan Start: 06/17/23 17:39 Freq: Status: Active Protocol: Document 07/02/23 11:21 [facility] (Rec: 07/02/23 12:13 [facility] [id number]) Physical Therapy Assessment Goals Two Impairment Pt has been limiting workouts due on ongoing history of back pain Care Home Goal (LTG) Pt to fully return to pre- injury workout with no instances of pain or limitations due to back tightness LTG Duration 08/17/23 One Impairment Pt does not have an appropriate home exercise program Short Term Goal (STG) Pt to be independent and compliant with an appropriate HEP STG Duration 07/17/23 Assessment Summary Assessment Pt presents w/ 2/10 R hip pain which improves to /10 end of session. One leg pelvic lift discontinued due to pain, and cueing for TrA increases pain. Pain resolves w/ LTR on 55cm physioball and pt is able to perform TrA activation w/ LTR without discomfort. Pt instructed in self-STM to piriformis w/ tennis ball at wall and encouraged to be mindful w/ eccentric control for sit to stands with activities of daily living. Palpable tension to R piriformis improves w/ manual therapy. Physical Therapy Plan Frequency and Duration Frequency of Treatment 2x/Week Plan of Care Start Date 06/17/23 Plan of Care End Date 08/17/23 Therapeutic Interventions Therapeutic Interventions Gait Training,Home Exercise Program,Joint Mobilizations, Manual Therapy,Neuromuscular Re-education,Patient/Caregiver Education,Self-Care/Home Management,Soft Tissue Mobilization,Therapeutic Activities,Therapeutic Exercises Next Visit Focus/Plan Next Note Type Treatment Note Next Visit Plan STM, stretching, strengthening
--- NOTE | 2023-07-08 16:10 | PT.OTN ---
Current Diagnoses Radiculopathy, lumbar region (07/08/23) Other muscle spasm (07/08/23) Physical Therapy Treatment Note PT-OP-A Visit Information Start: 06/17/23 17:39 Freq: Status: Active Protocol: Document 07/08/23 15:18 SW (Rec: 07/08/23 16:09 SW [id number]) Out-Patient Physical Therapy Visit Information Visit Information Visit Type Treatment Note PT-OP-B Current Condition Start: 06/17/23 17:39 Freq: Status: Active Protocol: Document 06/17/23 15:15 DCW (Rec: 06/18/23 13:30 DCW [id number]) Current Condition History of Current Condition Onset Date Long-standing history Current Complaints Back and left hip pain History of Current Condition Pt is a 32 year old female presenting to skilled therapy complaining of a recent flare- up of an old injury. Pt reports that she initially injured her back multiple years ago, she believes it began after playing softball, was seen at the time by a chiropractor, but afterward couldn't walk, and took an extended time for everything to largely get back to normal. Recently, she was feeling pretty stiff through her back on a Wednesday at work, played softball on Wednesday, and was in fairly severe pain Wednesday. Pt reports she was experiencing shooting pain across her low back, had to spend quite a while lying flat to calm things down, pain eventually faded and she was able to get back to running and the gym, but is limiting what she does due to lingering pain and stiffness. Pt does note that at this time, it feels more muscular, specifically tightness in the hip flexors and the back of her left hip. Treatment Goals Patient/Caregiver Goals Fully return to participation in gym activities PT-OP-C Subjective Start: 06/17/23 17:39 Freq: Status: Active Protocol: Document 07/08/23 15:18 SW (Rec: 07/08/23 16:09 SW [id number]) OP-PT Subjective Patient Comments Patient Comments Pt reports pain more in lumbar vs glute area. Still feeling radiating pain down lateral leg, though starting to feel better than before. Pn 2/10. PT-OP-F Manual Assessment Start: 06/17/23 17:39 Freq: Status: Active Protocol: Document 06/17/23 15:15 DCW (Rec: 06/18/23 13:30 DCW [id number]) Manual Assessments Soft Tissue Assessment Soft Tissue Mobility Assessment Moderate tone along left T/L erector spinae, left hip flexors, L>R ITB, L>R Piriformis Joint Mobility Assessment Joint Mobility Assessment Mild pain with P->A mobs at L3 -4 PT-OP-G Mobility & Gait Start: 06/17/23 17:39 Freq: Status: Active Protocol: Document 06/17/23 15:15 DCW (Rec: 06/18/23 13:30 DCW [id number]) OP Gait Assessment Comments Gait Comments Mild eversion/supination of feet bilaterally during gait, wear pattern along outside of shoe PT-OP-J Posture/Palpation/Skin Start: 06/17/23 17:39 Freq: Status: Active Protocol: Document 06/17/23 15:15 DCW (Rec: 06/18/23 13:30 DCW [id number]) Posture Evaluation Position Standing Ankle/Foot Posture (L) Pronated,(R) Pronated Foot Arch (L) Low Arch,(R) Low Arch PT-OP-L Special Tests Start: 06/17/23 17:39 Freq: Status: Active Protocol: Document 06/17/23 15:15 DCW (Rec: 06/18/23 13:30 DCW [id number]) Special Tests Lumbar Spine Special Tests Vertical Spine Loading Test Results Negative Miguel Ángel Test Results Bilaterally positive with J sign Straight Leg Raise Test Results Bilateral hamstring tightness Standing Flexion Test Results Complaint of lumbar tightness Slump Test Results Negative Prone Press Up Test Results Increased discomfort Passive Neck Flexion Test Results Negative Compression Test Results Negative A-P Shearing Test Results Negative PT-OP-Q Treatments Start: 06/17/23 17:39 Freq: Status: Active Protocol: Document 07/08/23 15:18 SW (Rec: 07/08/23 16:09 SW [id number]) Therapeutic Exercises Supine Exercises Bridge Supine Exercise Name w/ball squeeze Side bilateral Reps/Minutes x10 Comments Pain free range Single leg to chest Supine Exercise Name glute stretch Side bilateral Reps/Minutes 2 x 1 min Comments good stretch, no pain LTR Supine Exercise Name LTR feet together, feet apart Side bilateral Comments gentle mobility, pain free range Piriformis Supine Exercise Name Figure 4 stretch Side bilateral Reps/Minutes 2 x 1 min Comments good stretch, no pain One leg press/hold Supine Exercise Name SKTC w/ isometric resisted extension Side bilateral Resistance isometric hand hold Reps/Minutes 10 x 3 hold One leg pelvic lift Supine Exercise Name Reviewed today discontinued, pt reported pain during HEP Adduction Supine Exercise Name Hip Adduction w/ ball squeeze Side bilateral Resistance isometric hold Equipment Used blue/white ball Reps/Minutes 2x10 with 3 hold Standing Exercises Heel Raises Standing Exercise Name heel raises Side bilateral Reps/Minutes 2x10 Other Exercises Sliders Other Exercise Name Review next session Manual Therapy Treatment Soft Tissue Mobilization Piriformis Body Location R Piriformis Mobilization Type Strumming,Sustained Pressure, Trigger Point Release Intensity/Depth Deep Body Position Sidelying PT-OP-T Assessment and Plan Start: 06/17/23 17:39 Freq: Status: Active Protocol: Document 07/08/23 15:18 SW (Rec: 07/08/23 16:09 SW [id number]) Physical Therapy Assessment Goals Two Impairment Pt has been limiting workouts due on ongoing history of back pain Shelter Goal (LTG) Pt to fully return to pre- injury workout with no instances of pain or limitations due to back tightness LTG Duration 08/17/23 One Impairment Pt does not have an appropriate home exercise program Short Term Goal (STG) Pt to be independent and compliant with an appropriate HEP STG Duration 07/17/23 Assessment Summary Assessment Continued stretching and strengthening ex this session, ended with STM and ice to LB for pt comfort. Initiated bridge with ball squeeze, pain free range plan to review next session for pt tolerance. Instructed pt to monitor symptoms with HEP at home, and to not push into increasing pain or peripheralization of symptoms. Physical Therapy Plan Frequency and Duration Frequency of Treatment 2x/Week Plan of Care Start Date 06/17/23 Plan of Care End Date 08/17/23 Therapeutic Interventions Therapeutic Interventions Gait Training,Home Exercise Program,Joint Mobilizations, Manual Therapy,Neuromuscular Re-education,Patient/Caregiver Education,Self-Care/Home Management,Soft Tissue Mobilization,Therapeutic Activities,Therapeutic Exercises Next Visit Focus/Plan Next Note Type Treatment Note Next Visit Plan STM, stretching, strengthening
--- NOTE | 2023-10-25 15:50 | PT.OPDS ---
Current Diagnoses Radiculopathy, lumbar region (07/08/23) Other muscle spasm (07/08/23) Visit Care Team Role Provider Type JESSICA Mendoza- Primary Care Provider Advanced Public Welfare Director Specialty: Family Practice Address: [address] [place] [address], [id number] Phone: Fax: Email: [email or web address] Rachel Garcia PA-C Attending Provider Advanced Public [employer] Director Referring Provider Specialty: Medical Wound Care Address: [address] [place] [address], [id number] Email: [email or web address] Visit Number Visit Number 5 Discharge Summary PT-OP-B Current Condition Start: 06/17/23 17:39 Freq: Status: Active Protocol: Document 06/17/23 15:15 DCW (Rec: 06/18/23 13:30 DCW [id number]) Current Condition History of Current Condition Onset Date Long-standing history Current Complaints Back and left hip pain History of Current Condition Pt is a 32 year old female presenting to skilled therapy complaining of a recent flare- up of an old injury. Pt reports that she initially injured her back multiple years ago, she believes it began after playing softball, was seen at the time by a chiropractor, but afterward couldn't walk, and took an extended time for everything to largely get back to normal. Recently, she was feeling pretty stiff through her back on a Wednesday at work, played softball on Wednesday, and was in fairly severe pain Wednesday. Pt reports she was experiencing shooting pain across her low back, had to spend quite a while lying flat to calm things down, pain eventually faded and she was able to get back to running and the gym, but is limiting what she does due to lingering pain and stiffness. Pt does note that at this time, it feels more muscular, specifically tightness in the hip flexors and the back of her left hip. Treatment Goals Patient/Caregiver Goals Fully return to participation in gym activities PT-OP-C Subjective Start: 06/17/23 17:39 Freq: Status: Active Protocol: Document 07/08/23 15:18 SW (Rec: 07/08/23 16:09 SW [id number]) OP-PT Subjective Patient Comments Patient Comments Pt reports pain more in lumbar vs glute area. Still feeling radiating pain down lateral leg, though starting to feel better than before. Pn 2/10. PT-OP-F Manual Assessment Start: 06/17/23 17:39 Freq: Status: Active Protocol: Document 06/17/23 15:15 DCW (Rec: 06/18/23 13:30 DCW [id number]) Manual Assessments Soft Tissue Assessment Soft Tissue Mobility Assessment Moderate tone along left T/L erector spinae, left hip flexors, L>R ITB, L>R Piriformis Joint Mobility Assessment Joint Mobility Assessment Mild pain with P->A mobs at L3 -4 PT-OP-G Mobility & Gait Start: 06/17/23 17:39 Freq: Status: Active Protocol: Document 06/17/23 15:15 DCW (Rec: 06/18/23 13:30 DCW [id number]) OP Gait Assessment Comments Gait Comments Mild eversion/supination of feet bilaterally during gait, wear pattern along outside of shoe PT-OP-J Posture/Palpation/Skin Start: 06/17/23 17:39 Freq: Status: Active Protocol: Document 06/17/23 15:15 DCW (Rec: 06/18/23 13:30 DCW [id number]) Posture Evaluation Position Standing Ankle/Foot Posture (L) Pronated,(R) Pronated Foot Arch (L) Low Arch,(R) Low Arch PT-OP-L Special Tests Start: 06/17/23 17:39 Freq: Status: Active Protocol: Document 06/17/23 15:15 DCW (Rec: 06/18/23 13:30 DCW [id number]) Special Tests Lumbar Spine Special Tests Vertical Spine Loading Test Results Negative Miguel Ángel Test Results Bilaterally positive with J sign Straight Leg Raise Test Results Bilateral hamstring tightness Standing Flexion Test Results Complaint of lumbar tightness Slump Test Results Negative Prone Press Up Test Results Increased discomfort Passive Neck Flexion Test Results Negative Compression Test Results Negative A-P Shearing Test Results Negative PT-OP-T Assessment and Plan Start: 06/17/23 17:39 Freq: Status: Active Protocol: Document 10/25/23 15:49 DCW (Rec: 10/25/23 15:50 DCW [id number]) Physical Therapy Assessment Assessment Summary Assessment Pt canceled remaining visits following MRI, ortho recommending Pt will require a new referral in order to return to skilled therapy. Pt will be discharged at this time. Physical Therapy Plan Discharge Physical Therapy Discharge Reasons Change in Medical Status
== END 2023-10-28 14:23 | disposition home or self-care (01) ==
LOC: PHYS 15:15
PROVIDERS: PCP Nurse Practitioner Family; Referring Provider Physician Assistant; Visit Provider Physician Assistant
DX: M54.16 Radiculopathy, lumbar region (principal); M62.838 Other muscle spasm
CPT/HCPCS: 97110; 97140; 97161

== ENCOUNTER → 2023-07-12 11:48 | Outpatient (CLI) | payer OTHER, SELFPAY ==
--- NOTE | 2023-07-12 12:12 | DI.MRI.S_ITS ---
PROCEDURE: MR LUMBAR SPINE WO CON INDICATIONS: Numbness/Muscle Weakness in Legs TECHNIQUE: Noncontrast sagittal T1 spin echo and T2 fast echo, sagittal STIR, and T2 fast spin echo through the lumbar spine. In cases with scoliosis, additional coronal T2 fast spin echo may be performed. COMPARISON: None. FINDINGS: Image quality: Excellent. Alignment and Curvature: There is normal bony alignment. Bone Marrow: Marrow is of normal overall signal. No acute vertebral body compression fractures. Spinal Cord: Conus medullaris terminates at the L1 level. Visualized cord demonstrates normal signal and size. Paraspinous Soft Tissues: No paravertebral masses. T12-L1: Normal appearance. L1-L2: Normal appearance. L2-L3: Normal appearance. L3-L4: Normal appearance. L4-L5: Normal appearance. L5-S1: Disc space narrowing with right subarticular disc protrusion/extrusion with superior migration filling the right lateral recess and displacing the descending nerve root. Mild central stenosis. Severe right foraminal stenosis. No left foraminal stenosis. IMPRESSION: Large right subarticular L5-S1 disc protrusion/extrusion with superior migration filling the right lateral recess resulting and displacement of the descending nerve roots and severe right foraminal stenosis. Approved by: Luis Jean M.D. on 07/12/2023 at 18:19
== END ==
LOC: MRI 11:48
PROVIDERS: PCP Nurse Practitioner Family; Referring Provider Nurse Practitioner Family; Visit Provider Nurse Practitioner Family
DX: M51.17 Intervertebral disc disorders with radiculopathy, lumbosacral region (principal); M48.07 Spinal stenosis, lumbosacral region; R20.0 Anesthesia of skin; R29.898 Other symptoms and signs involving the musculoskeletal system
CPT/HCPCS: 72148

== ENCOUNTER → 2024-01-27 | Outpatient (CLI) | payer OTHER, SELFPAY | PROVIDERS: PCP Nurse Practitioner Family; Referring Provider Internal Medicine; Visit Provider Internal Medicine | DX: Z23 Encounter for immunization (principal) | CPT/HCPCS: 90471; 90656 ==

== ENCOUNTER → 2024-09-14 11:14 | Outpatient (CLI) | payer OTHER, SELFPAY ==
[2024-09-14 12:59] LABS: Appearance Urine UA CLEAR; Bilirubin Urine UA NEGATIVE (NEGATIVE); Color Urine UA YELLOW; Glucose Urine UA NEGATIVE (Negative); Ketones Urine UA NEGATIVE (NEGATIVE); Leukocyte Esterase Urine UA NEGATIVE (NEGATIVE); Nitrite Urine UA NEGATIVE (Negative); Occult Blood Urine UA NEGATIVE (Negative); Protein Urine UA NEGATIVE (Negative); Specific Gravity Urine UA 1.010 (1.000-1.035); Urobilinogen Urine UA 0.2 E.U./dL (0.2)
[2024-09-14 13:03] LABS: pH Urine UA 7.0 (4.5-8.0)
[2024-09-14 13:11] LABS: Culture Indicated Urine Cult Not Indicated
== END ==
PROVIDERS: PCP Nurse Practitioner Family; Referring Provider Internal Medicine; Visit Provider Internal Medicine
DX: R30.0 Dysuria (principal)
CPT/HCPCS: 81001

== ENCOUNTER → 2024-12-19 16:15 | Outpatient (CLI) | payer OTHER, SELFPAY ==
[2024-12-19 17:13] LABS: Hematocrit 36.4 % (36-46); Hemoglobin 12.2 g/dL (12.0-16.0); Mean Corpuscular HGB Conc 33.6 % (30-36); Mean Corpuscular Hemoglobin 29.4 PG (26-34); Mean Corpuscular Volume 87.7 fL (80-100); Platelet Count 244 X10^3/uL (150-400)
[2024-12-19 17:24] LABS: Hemoglobin A1C% w Est Avg Glu 4.7 % (4.0-6.0)
== END ==
PROVIDERS: PCP Family Medicine; Referring Provider Family Medicine; Visit Provider Family Medicine
DX: F41.9 Anxiety disorder, unspecified (principal); Z13.1 Encounter for screening for diabetes mellitus; R53.83 Other fatigue
CPT/HCPCS: 36415; 83036; 85027

== ENCOUNTER → 2025-01-15 16:24 | Outpatient (CLI) | payer OTHER, SELFPAY ==
--- NOTE | 2025-01-15 16:25 | DI.US.S_ITS ---
PROCEDURE: US OB <= 14 WEEKS FETUS INDICATIONS: dating and viability, unclear dates OUTSIDE/PRIOR DATING DATA: Last menstrual period (LMP): Unsure. First dating scan (date and location): 01/15/2025. Estimated date of delivery (SALLY) from first dating scan: 08/14/2025. TECHNIQUE: Real-time scanning was performed of the fetus and maternal pelvic organs, with image documentation. COMPARISON: None. FINDINGS: Cardiac motion is seen, rate 169 BPM. Ponder-rump length is 3.1 cm. Ultrasound age is 10 weeks. Right corpus luteum cyst is present. Yolk sac is seen. Probable anterior developing placenta IMPRESSION: Intrauterine gestation seen with cardiac motion. Ultrasound age is 10 weeks. Dictated by: Zaid Veras M.D. on 01/15/2025 at 20:40 Approved by: Zaid Veras M.D. on 01/15/2025 at 20:41
== END ==
LOC: US 16:25
PROVIDERS: PCP Family Medicine; Referring Provider Family Medicine; Visit Provider Family Medicine
DX: Z34.01 Encounter for supervision of normal first pregnancy, first trimester (principal); Z3A.10 10 weeks gestation of pregnancy
CPT/HCPCS: 76801; 76817

== ENCOUNTER → 2025-01-29 15:18 | Outpatient (CLI) | payer OTHER, SELFPAY ==
[2025-01-29 16:29] LABS: Appearance Urine UA SL CLOUDY; Bilirubin Urine UA NEGATIVE (NEGATIVE); Color Urine UA YELLOW; Glucose Urine UA NEGATIVE (Negative); Ketones Urine UA NEGATIVE (NEGATIVE); Leukocyte Esterase Urine UA TRACE (NEGATIVE); Nitrite Urine UA NEGATIVE (Negative); Occult Blood Urine UA TRACE-INTACT (Negative); Protein Urine UA NEGATIVE (Negative); Specific Gravity Urine UA 1.025 (1.000-1.035); Urobilinogen Urine UA 0.2 E.U./dL (0.2)
[2025-01-29 16:31] LABS: pH Urine UA 5.5 (4.5-8.0)
[2025-01-29 16:58] LABS: Natera Collection Specimen Collected
[2025-01-29 17:36] LABS: Add Manual Diff / Slide Review NO; Hematocrit 39.3 % (36-46); Hemoglobin 13.4 g/dL (12.0-16.0); Lymphocytes Absolute Auto 1500 /uL (1100-4500); Mean Corpuscular HGB Conc 34.2 % (30-36); Mean Corpuscular Hemoglobin 29.6 PG (26-34); Mean Corpuscular Volume 86.4 fL (80-100); Platelet Count 227 X10^3/uL (150-400)
[2025-01-29 17:52] LABS: Urine N gonorrhoeae NOT DETECTED
[2025-01-29 17:54] LABS: Urine Chlamydia NOT DETECTED
[2025-01-30 15:32] LABS: Hepatitis B Surface Antigen NEGATIVE s/c (NEGATIVE)
[2025-01-30 15:40] LABS: HIV 1 & 2 Ab/Ag 4th Gen Combo NEGATIVE (NEGATIVE)
[2025-01-30 15:45] LABS: Hep C Virus Ab w/Reflex Quant NEGATIVE s/c (NEGATIVE)
== END ==
PROVIDERS: PCP Family Medicine; Referring Provider Family Medicine; Visit Provider Family Medicine
DX: Z34.00 Encounter for supervision of normal first pregnancy, unspecified trimester (principal)
CPT/HCPCS: 36415; 80055; 81003; 81015; 86787; 86803; 86850; 86900; 86901; 87086; 87389; 87491; 87591